=== PATIENT | female | born 1990 | race Caucasian/White ===

== ENCOUNTER 2016-09-19 18:39 | Outpatient (CLI) | payer OTHER ==
[~2016-09-19] VITALS: Ht 157.5 cm; Wt 64.5 kg
[2016-09-19 19:38] VITALS: BP 115/73
== END 2016-09-19 19:50 | disposition home or self-care (01) ==
LOC: LDOP 18:39
PROVIDERS: ATTEND Obstetrics & Gynecology
DX: O26.893 Other specified pregnancy related conditions, third trimester (principal); O42.913 Preterm premature rupture of membranes, unspecified as to length of time between rupture and onset of labor, third trimester; R10.9 Unspecified abdominal pain; Z3A.31 31 weeks gestation of pregnancy
CPT/HCPCS: 59025; 89060; 99211; G0463; Q0114

== ENCOUNTER 2016-10-12 10:39 | Outpatient (CLI) | payer OTHER ==
[~2016-10-12] VITALS: Ht 157.5 cm; Wt 63.6 kg
[2016-10-12] MEDS ORDERED: ACETAMINOPHEN 325 MG TABLET ONE (11:40)
[2016-10-12 11:43] VITALS: BP 115/58
[2016-10-12] MEDS ORDERED: ACETAMINOPHEN 325 MG TABLET PO PRN (12:00)
[2016-10-12 13:33] LABS: ASPARTATE AMINO TRANSFERASE 31 U/L (15-37); BLOOD UREA NITROGEN 5 mg/dL (7-18)
== END 2016-10-12 14:05 | disposition home or self-care (01) ==
LOC: LDOP 10:39
PROVIDERS: ATTEND Obstetrics & Gynecology
DX: O26.893 Other specified pregnancy related conditions, third trimester (principal); O42.92 Full-term premature rupture of membranes, unspecified as to length of time between rupture and onset of labor; O12.03 Gestational edema, third trimester; R10.9 Unspecified abdominal pain; Z3A.38 38 weeks gestation of pregnancy
CPT/HCPCS: 36415; 59025; 80053; 81003; 82731; 84550; 85025; 87086; 99211; G0463

== ENCOUNTER 2017-01-02 14:24 | Emergency (ER) | payer OTHER ==
[~2017-01-02] VITALS: Ht 157.5 cm; Wt 61.0 kg
[2017-01-02 15:52] LABS: HEMATOCRIT 39.9 % (34.6-47.8); HEMOGLOBIN 13.2 g/dL (11.7-16.4); WHITE BLOOD COUNT 7.1 x10^3/uL (3.4-10)
[2017-01-02 16:04] LABS: BLOOD UREA NITROGEN 8 mg/dL (7-18)
[2017-01-02 16:15] LABS: PATH.CAST-FLAG NOT PRESENT; SPERM-FLAG NOT PRESENT; SRC-FLAG NOT PRESENT; XTAL-FLAG NOT PRESENT; YLC-FLAG NOT PRESENT
[2017-01-02 18:09] VITALS: BP 129/66
== END 2017-01-02 18:39 | disposition home or self-care (01) ==
LOC: ED 18:00
DX: N89.8 Other specified noninflammatory disorders of vagina (principal); I38 Endocarditis, valve unspecified
CPT/HCPCS: 36415; 76830; 80048; 81001; 82040; 84703; 85025; 87086; 87210; 87491; 87591; 87808; 99285